=== PATIENT | female | born 1960 | race Caucasian/White ===

== ENCOUNTER 2024-04-12 14:30 | Inpatient (IN) | payer MEDICARE, OTHER ==
[~2024-04-12] VITALS: Ht 149.9 cm; Wt 64.0 kg
[2024-04-12 17:05] VITALS: BP 149/60; PULSE 70; RESP 18; TEMP 98; O2SAT 100
[2024-04-12] MEDS ORDERED: ACETAMINOPHEN 325 MG TABLET PO PRN (18:00)
[2024-04-12] MEDS ORDERED: GLUCAGON,HUMAN RECOMBINANT 1 MG VIAL IM PRN (18:15)
[2024-04-12] MEDS ORDERED: INSULIN LISPRO 100 UNITS/ML SQ PRN (18:15)
[2024-04-12] MEDS ORDERED: DEXTROSE 50%-WATER 25 GM/50 ML SYRINGE IVP PRN (18:30)
[2024-04-12 20:39] VITALS: BP 151/58; PULSE 71; RESP 18; TEMP 97.6; O2SAT 99
[2024-04-12 20:46] LABS: GLUCOMETER DEV NAME(LOC) 2WR.1D; GLUCOSE,POINT OF CARE 285 MG/DL (70-110)
[2024-04-12] MEDS: MELATONIN 5 MG TABLET PO PRN (20:56)
[2024-04-12] MEDS: INSULIN LISPRO 100 UNITS/ML SQ PRN (20:59)
[2024-04-12 23:46] VITALS: O2SAT 99
[2024-04-13] VITALS (12 sets, daily range): BP systolic 115–171; BP diastolic 51–81; PULSE 66–71; RESP 17–18; TEMP 96.9–98.3; O2SAT 100
[2024-04-13 05:35] LABS: GLUCOMETER DEV NAME(LOC) 2WR.1D; GLUCOSE,POINT OF CARE 143 MG/DL (70-110)
[2024-04-13 08:32] LABS: BASOPHILS % (AUTO) 1.5 % (0.0-2.0); EOSINOPHILS % (AUTO) 4.3 % (1.0-6.0); HEMOGLOBIN 9.2 g/dL (12.0-16.0); LYMPHOCYTES % (AUTO) 17.2 % (22.0-44.0); MEAN CORPUSCULAR HEMOGLOBIN 32.1 pg (26.0-34.0); MEAN CORPUSCULAR HGB CONC 33.9 G/dL (31.0-37.0); MEAN CORPUSCULAR VOLUME 95 fL (80-100); MONOCYTES # (AUTO) 0.5 K/uL (0.1-1.0); MONOCYTES % (AUTO) 9.5 % (2.0-9.0); NEUTROPHILS # (AUTO) 3.9 K/uL (1.8-7.7); NEUTROPHILS % (AUTO) 67.5 % (40.0-70.0); PLATELET COUNT (AUTO) 223 K/uL (150-450); RED BLOOD CELL COUNT(AUTO) 2.86 MIL/uL (4.00-5.20); RED CELL DISTRIBUTION WIDTH 13.7 % (11.5-14.5); WHITE BLOOD COUNT (AUTO) 5.8 K/uL (4.5-11.0)
[2024-04-13] MEDS: SODIUM ZIRCONIUM CYCLOSILICATE 5 GM POWDER PACKET PO SCH (09:00)
[2024-04-13] MEDS ORDERED: SODIUM ZIRCONIUM CYCLOSILICATE 5 GM POWDER PACKET PO SCH (09:00)
[2024-04-13 09:01] LABS: ALBUMIN 3.5 g/dL (3.4-5.0); BILIRUBIN,TOTAL 0.3 mg/dL (0.1-1.0); CALCIUM, TOTAL 8.6 mg/dL (8.8-10.5); CREATININE 3.15 mg/dL (0.60-1.30); TOTAL PROTEIN, SERUM 7.7 g/dL (6.4-8.2)
[2024-04-13] MEDS: ASPIRIN 81 MG CHEWABLE TABLET PO SCH (09:57)
[2024-04-13] MEDS: AmLODIPine BESYLATE 10 MG TABLET PO SCH (09:58)
[2024-04-13] MEDS: FOLIC ACID/VIT B COMPLEX AND C TABLET PO SCH (09:58)
[2024-04-13] MEDS: FUROSEMIDE 20 MG TABLET PO SCH (09:58)
[2024-04-13] MEDS: CLOPIDOGREL BISULFATE 75 MG TABLET PO SCH (09:59)
[2024-04-13] MEDS: LISINOPRIL 20 MG TABLET PO SCH (09:59)
[2024-04-13 10:11] LABS: GLUCOMETER DEV NAME(LOC) 2WR.1D; GLUCOSE,POINT OF CARE 122 MG/DL (70-110)
[2024-04-13] MEDS: EPOETIN ALFA 10,000 UNITS/ML VIAL SQ SCH (10:13)
[2024-04-13 12:47] LABS: GLUCOMETER DEV NAME(LOC) 2WR.1D; GLUCOSE,POINT OF CARE 319 MG/DL (70-110)
[2024-04-13 18:51] LABS: GLUCOMETER DEV NAME(LOC) 2WR.1D; GLUCOSE,POINT OF CARE 288 MG/DL (70-110)
[2024-04-13] MEDS ORDERED: DOCUSATE SODIUM 283 MG/5 ML MINI-ENEMA PR PRN (20:45)
[2024-04-13] MEDS: ATORVASTATIN CALCIUM 40 MG TABLET PO SCH (21:00)
[2024-04-13 21:01] LABS: GLUCOMETER DEV NAME(LOC) 2WR.2B; GLUCOSE,POINT OF CARE 194 MG/DL (70-110)
[2024-04-13] MEDS: ETHYL ALCOHOL 62% ANTISEPTIC NASAL SANITIZER 0.6 ML AMPUL NASAL SCH (21:09)
[2024-04-13] MEDS: DOCUSATE SODIUM 100 MG CAPSULE PO SCH (21:10)
[2024-04-13] MEDS: SENNOSIDES 8.6 MG TABLET PO SCH (21:10)
[2024-04-14 06:56] LABS: GLUCOMETER DEV NAME(LOC) 2WR.2B; GLUCOSE,POINT OF CARE 137 MG/DL (70-110)
[2024-04-14 08:10] VITALS: BP 148/58; PULSE 67; RESP 18; TEMP 97.6; O2SAT 100
[2024-04-14 12:26] LABS: GLUCOMETER DEV NAME(LOC) 2WR.2B; GLUCOSE,POINT OF CARE 276 MG/DL (70-110)
[2024-04-14] MEDS: SODIUM ZIRCONIUM CYCLOSILICATE 5 GM POWDER PACKET PO ONE (12:51)
[2024-04-14] MEDS: OMEGA-3/DHA/EPA/FISH OIL 1,000 MG CAPSULE PO SCH (15:27)
[2024-04-14 17:06] LABS: GLUCOMETER DEV NAME(LOC) 2WR.2B; GLUCOSE,POINT OF CARE 172 MG/DL (70-110)
[2024-04-14 20:00] VITALS: BP 146/62; PULSE 67; RESP 18; TEMP 98; O2SAT 100
[2024-04-14 20:12] VITALS: O2SAT 100
[2024-04-14 20:41] LABS: GLUCOMETER DEV NAME(LOC) 2WR.1D; GLUCOSE,POINT OF CARE 225 MG/DL (70-110)
[2024-04-15 06:40] LABS: GLUCOMETER DEV NAME(LOC) 2WR.2B; GLUCOSE,POINT OF CARE 170 MG/DL (70-110)
[2024-04-15 08:05] VITALS: BP 138/74; PULSE 76; RESP 18; TEMP 98.2; O2SAT 98
[2024-04-15 10:15] VITALS: O2SAT 98
[2024-04-15 11:21] LABS: GLUCOMETER DEV NAME(LOC) 2WR.2B; GLUCOSE,POINT OF CARE 168 MG/DL (70-110)
[2024-04-15 17:16] LABS: GLUCOMETER DEV NAME(LOC) 2WR.1D; GLUCOSE,POINT OF CARE 207 MG/DL (70-110)
[2024-04-15 20:00] VITALS: BP 142/58; PULSE 69; RESP 19; TEMP 97.7; O2SAT 98
[2024-04-15 21:30] LABS: GLUCOMETER DEV NAME(LOC) 2WR.1D; GLUCOSE,POINT OF CARE 319 MG/DL (70-110)
[2024-04-15 22:50] VITALS: O2SAT 99
[2024-04-16] VITALS (13 sets, daily range): BP systolic 99–175; BP diastolic 60–79; PULSE 66–79; RESP 16–18; TEMP 98–98.1; O2SAT 98–99
[2024-04-16 06:56] LABS: GLUCOMETER DEV NAME(LOC) 2WR.1D; GLUCOSE,POINT OF CARE 229 MG/DL (70-110)
[2024-04-16 08:01] LABS: CALCIUM, TOTAL 6.7 mg/dL (8.8-10.5); CREATININE 10.69 mg/dL (0.60-1.30)
[2024-04-16 08:22] LABS: POTASSIUM 6.2 mmol/L (3.5-5.1)
[2024-04-16] MEDS: SODIUM ZIRCONIUM CYCLOSILICATE 5 GM POWDER PACKET PO SCH (09:55)
[2024-04-16 12:56] LABS: GLUCOMETER DEV NAME(LOC) 2WR.2B; GLUCOSE,POINT OF CARE 184 MG/DL (70-110)
[2024-04-16] MEDS ORDERED: SODIUM CHLORIDE 0.9% 1,000 ML ONE ×2 (13:32)
[2024-04-16 18:01] LABS: GLUCOMETER DEV NAME(LOC) 2WR.2B; GLUCOSE,POINT OF CARE 164 MG/DL (70-110)
[2024-04-16 20:36] LABS: GLUCOMETER DEV NAME(LOC) 2WR.1D; GLUCOSE,POINT OF CARE 242 MG/DL (70-110)
[2024-04-17 06:51] LABS: GLUCOMETER DEV NAME(LOC) 2WR.1D; GLUCOSE,POINT OF CARE 192 MG/DL (70-110)
[2024-04-17] MEDS: SitaGLIPtin PHOSPHATE 25 MG TABLET PO SCH (07:48)
[2024-04-17 08:00] VITALS: BP 158/66; PULSE 71; RESP 18; TEMP 98.5; O2SAT 96
[2024-04-17 14:40] LABS: GLUCOMETER DEV NAME(LOC) 2WR.1D; GLUCOSE,POINT OF CARE 238 MG/DL (70-110)
[2024-04-17 18:36] LABS: GLUCOMETER DEV NAME(LOC) 2WR.1D; GLUCOSE,POINT OF CARE 329 MG/DL (70-110)
[2024-04-17 20:00] VITALS: BP 145/67; PULSE 70; RESP 19; TEMP 98.2; O2SAT 98
[2024-04-17] MEDS: HydrALAZINE HCL 25 MG TABLET PO SCH (20:38)
[2024-04-17 21:06] LABS: GLUCOMETER DEV NAME(LOC) 2WR.2B; GLUCOSE,POINT OF CARE 224 MG/DL (70-110)
[2024-04-17 23:02] VITALS: O2SAT 98
[2024-04-18] VITALS (13 sets, daily range): BP systolic 138–187; BP diastolic 65–78; PULSE 68–74; RESP 18–20; TEMP 97.8–98.2; O2SAT 98
[2024-04-18 07:16] LABS: GLUCOMETER DEV NAME(LOC) 2WR.1D; GLUCOSE,POINT OF CARE 203 MG/DL (70-110)
[2024-04-18] MEDS: PANTOPRAZOLE SODIUM 40 MG DR TABLET PO SCH (08:17)
[2024-04-18] MEDS: ATORVASTATIN CALCIUM 20 MG TABLET PO SCH (08:33)
[2024-04-18 12:51] LABS: BASOPHILS % (AUTO) 0.5 % (0.0-2.0); HEMATOCRIT 26.9 % (36-46); HEMOGLOBIN 9.1 g/dL (12.0-16.0); LYMPHOCYTES # (AUTO) 1.2 K/uL (1.0-4.8); LYMPHOCYTES % (AUTO) 19.5 % (22.0-44.0); MEAN CORPUSCULAR HEMOGLOBIN 32.2 pg (26.0-34.0); MEAN CORPUSCULAR HGB CONC 33.7 G/dL (31.0-37.0); MEAN CORPUSCULAR VOLUME 95 fL (80-100); MONOCYTES # (AUTO) 0.6 K/uL (0.1-1.0); MONOCYTES % (AUTO) 9.8 % (2.0-9.0); NEUTROPHILS # (AUTO) 4.1 K/uL (1.8-7.7); NEUTROPHILS % (AUTO) 67.2 % (40.0-70.0); PLATELET COUNT (AUTO) 346 K/uL (150-450); RED BLOOD CELL COUNT(AUTO) 2.82 MIL/uL (4.00-5.20); RED CELL DISTRIBUTION WIDTH 13.4 % (11.5-14.5); WHITE BLOOD COUNT (AUTO) 6.1 K/uL (4.5-11.0)
[2024-04-18 12:59] LABS: CALCIUM, TOTAL 7.9 mg/dL (8.8-10.5); CREATININE 8.13 mg/dL (0.60-1.30); POTASSIUM 4.9 mmol/L (3.5-5.1)
[2024-04-18 17:11] LABS: GLUCOMETER DEV NAME(LOC) 2WR.2B; GLUCOSE,POINT OF CARE 208 MG/DL (70-110)
[2024-04-18 17:26] LABS: GLUCOMETER DEV NAME(LOC) 2WR.2B; GLUCOSE,POINT OF CARE 184 MG/DL (70-110)
[2024-04-18 22:16] LABS: GLUCOMETER DEV NAME(LOC) 2WR.2B; GLUCOSE,POINT OF CARE 266 MG/DL (70-110)
[2024-04-19 08:00] VITALS: BP 160/67; PULSE 72; RESP 18; TEMP 98.7; O2SAT 99
[2024-04-19 08:01] LABS: GLUCOMETER DEV NAME(LOC) 2WR.1D; GLUCOSE,POINT OF CARE 173 MG/DL (70-110)
[2024-04-19 09:00] VITALS: BP 158/65; RESP 18; O2SAT 100
[2024-04-19 13:26] LABS: GLUCOMETER DEV NAME(LOC) 2WR.1D; GLUCOSE,POINT OF CARE 340 MG/DL (70-110)
[2024-04-19 13:30] VITALS: BP 110/50; RESP 18; O2SAT 100
[2024-04-19 16:00] VITALS: BP 112/55; RESP 18; O2SAT 100
[2024-04-19 17:35] LABS: GLUCOMETER DEV NAME(LOC) 2WR.1D; GLUCOSE,POINT OF CARE 177 MG/DL (70-110)
[2024-04-19 20:01] VITALS: BP 162/70; PULSE 75; RESP 18; TEMP 98.2; O2SAT 100
[2024-04-19 22:06] LABS: GLUCOMETER DEV NAME(LOC) 2WR.2B; GLUCOSE,POINT OF CARE 157 MG/DL (70-110)
[2024-04-20] VITALS (17 sets, daily range): BP systolic 122–189; BP diastolic 56–91; PULSE 62–73; RESP 16–18; TEMP 97.2–98.2; O2SAT 100
[2024-04-20 06:56] LABS: GLUCOMETER DEV NAME(LOC) 2WR.2B; GLUCOSE,POINT OF CARE 196 MG/DL (70-110)
[2024-04-20 12:16] LABS: GLUCOMETER DEV NAME(LOC) 2WR.1D; GLUCOSE,POINT OF CARE 147 MG/DL (70-110)
[2024-04-20] MEDS ORDERED: SODIUM CHLORIDE 0.9% 2,000 ML ONE (14:37)
[2024-04-20] MEDS: HydrALAZINE HCL 50 MG TABLET PO SCH (16:00)
[2024-04-20 19:31] LABS: GLUCOMETER DEV NAME(LOC) 2WR.2B; GLUCOSE,POINT OF CARE 101 MG/DL (70-110)
[2024-04-20 21:55] LABS: GLUCOMETER DEV NAME(LOC) 2WR.2B; GLUCOSE,POINT OF CARE 231 MG/DL (70-110)
[2024-04-21 06:56] LABS: GLUCOMETER DEV NAME(LOC) 2WR.1D; GLUCOSE,POINT OF CARE 176 MG/DL (70-110)
[2024-04-21 08:05] VITALS: BP 146/64; PULSE 70; RESP 18; TEMP 98.3; O2SAT 99
[2024-04-21 10:20] VITALS: O2SAT 98
[2024-04-21 11:45] LABS: GLUCOMETER DEV NAME(LOC) 2WR.1D; GLUCOSE,POINT OF CARE 206 MG/DL (70-110)
[2024-04-21 15:46] VITALS: BP 141/64; PULSE 72; RESP 18; TEMP 98; O2SAT 100
[2024-04-21 16:55] LABS: GLUCOMETER DEV NAME(LOC) 2WR.1D; GLUCOSE,POINT OF CARE 159 MG/DL (70-110)
[2024-04-21 21:01] LABS: GLUCOMETER DEV NAME(LOC) 2WR.1D; GLUCOSE,POINT OF CARE 167 MG/DL (70-110)
[2024-04-21 22:04] VITALS: BP 144/59; PULSE 67; RESP 18; TEMP 98.2; O2SAT 100
[2024-04-21 22:05] VITALS: O2SAT 100
[2024-04-22] VITALS (7 sets, daily range): BP systolic 142–175; BP diastolic 59–83; PULSE 66–70; RESP 18; TEMP 98–98.2; O2SAT 98–100
[2024-04-22 06:56] LABS: GLUCOMETER DEV NAME(LOC) 2WR.1D; GLUCOSE,POINT OF CARE 178 MG/DL (70-110)
[2024-04-22 12:31] LABS: GLUCOMETER DEV NAME(LOC) 2WR.1D; GLUCOSE,POINT OF CARE 201 MG/DL (70-110)
[2024-04-22] MEDS: HydrALAZINE HCL 50 MG TABLET PO SCH (12:31)
[2024-04-22 16:46] LABS: GLUCOMETER DEV NAME(LOC) 2WR.1D; GLUCOSE,POINT OF CARE 195 MG/DL (70-110)
[2024-04-22 20:41] LABS: GLUCOMETER DEV NAME(LOC) 2WR.1D; GLUCOSE,POINT OF CARE 180 MG/DL (70-110)
[2024-04-23] VITALS (14 sets, daily range): BP systolic 152–183; BP diastolic 59–112; PULSE 61–73; RESP 18; TEMP 97.5–98.4; O2SAT 98–100
[2024-04-23] MEDS ORDERED: ASPI-1450 PO (04:27)
[2024-04-23] MEDS ORDERED: FURO20 PO (04:28)
[2024-04-23] MEDS ORDERED: HYDR50TA36 PO (04:28)
[2024-04-23] MEDS ORDERED: AMLO-258 PO (04:30)
[2024-04-23] MEDS ORDERED: SITA25 PO (04:31)
[2024-04-23] MEDS ORDERED: ATOR20TA PO (04:32)
[2024-04-23] MEDS ORDERED: B CO1CAP6 PO (04:34)
[2024-04-23] MEDS ORDERED: PANT-31 PO (04:36)
[2024-04-23] MEDS ORDERED: CLOP75TA60 PO (04:36)
[2024-04-23] MEDS ORDERED: SODI5POW3 PO (04:40)
[2024-04-23] MEDS ORDERED: DOCU-385 PO (04:41)
[2024-04-23] MEDS ORDERED: LISI-894 PO (04:42)
[2024-04-23 06:50] LABS: GLUCOMETER DEV NAME(LOC) 2WR.1D; GLUCOSE,POINT OF CARE 164 MG/DL (70-110)
[2024-04-23] MEDS ORDERED: SODIUM CHLORIDE 0.9% 1,000 ML ONE ×2 (08:36→08:37)
[2024-04-23 13:55] LABS: GLUCOMETER DEV NAME(LOC) 2WR.1D; GLUCOSE,POINT OF CARE 207 MG/DL (70-110)
[2024-04-23 17:56] LABS: GLUCOMETER DEV NAME(LOC) 2WR.2B; GLUCOSE,POINT OF CARE 235 MG/DL (70-110)
[2024-04-23 22:05] LABS: GLUCOMETER DEV NAME(LOC) 2WR.1D; GLUCOSE,POINT OF CARE 178 MG/DL (70-110)
[2024-04-24] MEDS ORDERED: INSU100V SQ ×2 (01:53→11:30)
[2024-04-24 07:11] LABS: GLUCOMETER DEV NAME(LOC) 2WR.2B; GLUCOSE,POINT OF CARE 130 MG/DL (70-110)
[2024-04-24 08:00] VITALS: BP 162/67; PULSE 67; RESP 19; TEMP 97.7; O2SAT 100
[2024-04-24] MEDS ORDERED: SODI5POW3 PO (11:30)
[2024-04-24] MEDS ORDERED: FURO20 PO (11:30)
[2024-04-24] MEDS ORDERED: AMLO-258 PO (11:30)
[2024-04-24] MEDS ORDERED: SITA25 PO (11:30)
[2024-04-24] MEDS ORDERED: SENN-277 PO (11:30)
[2024-04-24] MEDS ORDERED: ASPI-1450 PO (11:30)
[2024-04-24] MEDS ORDERED: HYDR50TA37 PO (11:30)
[2024-04-24] MEDS ORDERED: CLOP75TA60 PO (11:30)
[2024-04-24] MEDS ORDERED: VIT B COMPLEX AND C PO (11:30)
[2024-04-24] MEDS ORDERED: FOLIC ACID PO (11:30)
[2024-04-24] MEDS ORDERED: PANT-31 PO (11:30)
[2024-04-24] MEDS ORDERED: LISI-894 PO (11:30)
[2024-04-24] MEDS ORDERED: ATOR20TA65 PO (11:30)
[2024-04-24 12:00] LABS: GLUCOMETER DEV NAME(LOC) 2WR.2B; GLUCOSE,POINT OF CARE 233 MG/DL (70-110)
== END 2024-04-24 15:30 | disposition home or self-care (01) | DRG 56 ==
LOC: 2WR 16:56 → 4E 04-18 11:06
PROVIDERS: ADMIT Physical Medicine & Rehabilitation; ATTEND Physical Medicine & Rehabilitation
PROC: 5A1D70Z Performance of Urinary Filtration, Intermittent, Less than 6 Hours Per Day (ICD-10-PCS; principal; 2024-04-13)
PROC: 5A1D70Z Performance of Urinary Filtration, Intermittent, Less than 6 Hours Per Day (ICD-10-PCS; 2024-04-16)
PROC: 5A1D70Z Performance of Urinary Filtration, Intermittent, Less than 6 Hours Per Day (ICD-10-PCS; 2024-04-18)
PROC: 5A1D70Z Performance of Urinary Filtration, Intermittent, Less than 6 Hours Per Day (ICD-10-PCS; 2024-04-20)
PROC: 5A1D70Z Performance of Urinary Filtration, Intermittent, Less than 6 Hours Per Day (ICD-10-PCS; 2024-04-23)
DX: G81.91 Hemiplegia, unspecified affecting right dominant side (principal); I63.9 Cerebral infarction, unspecified; N18.6 End stage renal disease; G93.40 Encephalopathy, unspecified; I12.0 Hypertensive chronic kidney disease with stage 5 chronic kidney disease or end stage renal disease; N25.81 Secondary hyperparathyroidism of renal origin; D63.1 Anemia in chronic kidney disease; E11.22 Type 2 diabetes mellitus with diabetic chronic kidney disease; E11.65 Type 2 diabetes mellitus with hyperglycemia; E78.5 Hyperlipidemia, unspecified; E87.5 Hyperkalemia; G93.89 Other specified disorders of brain; H35.30 Unspecified macular degeneration; H54.61 Unqualified visual loss, right eye, normal vision left eye; R62.7 Adult failure to thrive; Z74.09 Other reduced mobility; Z79.899 Other long term (current) drug therapy; Z99.2 Dependence on renal dialysis; R42 Dizziness and giddiness; R26.81 Unsteadiness on feet; E87.6 Hypokalemia; E11.319 Type 2 diabetes mellitus with unspecified diabetic retinopathy without macular edema; Z91.199 Patient's noncompliance with other medical treatment and regimen due to unspecified reason; Z88.1 Allergy status to other antibiotic agents; Z83.3 Family history of diabetes mellitus; Z91.148 Patient's other noncompliance with medication regimen for other reason; R41.89 Other symptoms and signs involving cognitive functions and awareness; R47.1 Dysarthria and anarthria
CPT/HCPCS: 80048; 80053; 82962; 84132; 85025; 87081; 87340; 90935; 92507; 92508; 92523; 93970; 97112; 97116; 97150; 97163; 97166; 97530; 97535; 99366; J0885; J7030; Q9967